=== PATIENT | male | born 1990 | race African-American/Black ===

== ENCOUNTER 2016-04-02 21:34 | Emergency (ER) | payer OTHER ==
[~2016-04-02] VITALS: Ht 177.8 cm; Wt 124.7 kg
[2016-04-02 21:45] VITALS: BP 147/86
--- NOTE | 2016-04-02 21:55 | PHYS DOC ---
Past Medical History Past Medical History: Hypertension, Other Additional Past Medical Histor: MOOD DISORDER, BACK PAIN, HERPES Past Surgical History: Other Additional Past Surgical Histo: GENITAL AND EYE Alcohol Use: None Drug Use: None Adult General Chief Complaint Chief Complaint: FOREIGN BODY HPI HPI Patient is a 25 year old male who presents with penile foreign body. Patient reports ~5-6 this evening he took the plastic cap from a disposable razor and pushed in into his urethra. When asked why he says because he was bored. He has not been able to urinate since he placed it there. He is having pain in his penis right now. He does have recent history of similar problem; he says about a week ago he put a toothbrush into his urethra that had to be surgically removed (this was in [place]). No episodes before that. Review of Systems Review of Systems Constitutional: Denies fever or chills Respiratory: Denies cough or shortness of breath Cardiovascular: Denies chest pain GI: Denies abdominal pain, nausea, vomiting, or diarrhea : Foreign body in urethra, unable to urinate Musculoskeletal: Denies back pain or joint pain Current Medications Current Medications Current Medications Medications (Trade) Dose Ordered Sig/Kristin Start Time Stop Time Status Last Admin Dose Admin Ibuprofen (Motrin) 800 mg 1X ONCE 04/02/16 22:15 04/02/16 22:16 DC Allergies Allergies Allergies Coded Allergies Type Severity Reaction Last Updated Verified Penicillins Allergy Unknown 04/02/16 Yes Physical Exam Physical Exam Constitutional: Well developed, well nourished, no acute distress, non-toxic appearance HENT: Normocephalic, atraumatic, bilateral external ears normal Cardiovascular: Heart rate normal, regular rhythm, no murmur Lungs & Thorax: Bilateral breath sounds clear to auscultation Abdomen: Bowel sounds normal, soft, non-distended, no TTP : Foreign body palpable in penile urethra, TTP; no blood or discharge at urethral meatus Skin: Warm, dry, no erythema, no rash Current Patient Data Vital Signs Vital Signs Date Time Temp Pulse Resp B/P Pulse Ox O2 Delivery O2 Flow Rate FiO2 04/02/16 21:45 98.3 79 20 147/86 98 Room Air 98.3 EKG EKG [] Radiology/Procedures Radiology/Procedures [] Course & Med Decision Making Course & Med Decision Making Pertinent Labs and Imaging studies reviewed. (See chart for details) Patient is 25-year-old male who presents with urethral foreign body. He has been unable to urinate since placing it. I spoke with Dr. Maria, electronics test engineer urologist. He is out of town tonight; per his recommendation we will bladder scan the patient, and if greater than 200 mL then he will need to be transferred so that he can have it removed tonight. If not then he will be able to stay until the morning when Dr. Maria will be able to remove it. Bladder scan showed 477 mL in the bladder. I spoke with Dr. Richards at [facility], who has graciously accepted patient in transfer. We will transfer him via [facility] transport van. Patient up-to-date on plan. Dragon Disclaimer Dragon Disclaimer This electronic medical record was generated, in whole or in part, using a voice recognition dictation system. Departure Departure Impression: Primary Impression: Urethral foreign body Disposition: 05 TRANSFER OTHER Condition: STABLE EBER LAMBERT MD Apr 02, 2016 21:55
[2016-04-02] MEDS ORDERED: IBUPROFEN 800 MG TABLET. PO ONE (22:15)
== END 2016-04-02 23:17 | disposition short-term general hospital (02) ==
LOC: EEVIPCON 21:34 → ER 21:34
DX: T19.0XXA Foreign body in urethra, initial encounter (principal); I10 Essential (primary) hypertension; F39 Unspecified mood [affective] disorder; Z88.0 Allergy status to penicillin; X58.XXXA Exposure to other specified factors, initial encounter; Y93.89 Activity, other specified; Y92.89 Other specified places as the place of occurrence of the external cause; Y99.8 Other external cause status
CPT/HCPCS: 99284

== ENCOUNTER 2016-04-30 02:55 | Emergency (ER) | payer OTHER ==
[~2016-04-30] VITALS: Ht 182.9 cm; Wt 124.7 kg
[2016-04-30 03:17] VITALS: BP 167/82
[2016-04-30] MEDS ORDERED: CIPR500T94 PO (03:51)
--- NOTE | 2016-04-30 03:52 | PHYS DOC ---
Past Medical History Past Medical History: Hypertension, Other Additional Past Medical Histor: MOOD DISORDER, BACK PAIN, HERPES Past Surgical History: Other Additional Past Surgical Histo: GENITAL AND EYE Alcohol Use: None Drug Use: None Adult General Chief Complaint Chief Complaint: FOREIGN BODY HPI HPI Patient is a 25 year old male who presents with complaint of self inserted foreign body in the urethra. Patient states that he placed a pen cap inside of his penis through his urethra. The patient when asked why he did this stated "I don't know, I just got bored." The patient has admitted to doing the same in the past and was recently seen in the emergency department in March of this year and transferred to [facility] for removal. Patient states he did this yesterday evening and stated that he started getting worsening pain early this morning. Patient brought to the emergency department from [facility] where he currently resides. Patient rates his pain as 8 out of 10. Patient states he is having difficulty urinating due to the obstruction. Review of Systems Review of Systems Constitutional: Denies fever or chills [] Eyes: Denies change in visual acuity, redness, or eye pain [] HENT: Denies nasal congestion or sore throat [] Respiratory: Denies cough or shortness of breath [] Cardiovascular: Denies chest pain or edema [] GI: Denies abdominal pain, nausea, vomiting, bloody stools or diarrhea [] : Dysuria, foreign body in urethra [] Musculoskeletal: Denies back pain or joint pain [] Integument: Denies rash or skin lesions [] Neurologic: Denies headache, focal weakness or sensory changes [] Allergies Allergies Allergies Coded Allergies Type Severity Reaction Last Updated Verified Penicillins Allergy Unknown 04/02/16 Yes Physical Exam Physical Exam Constitutional: Alert, afebrile, no acute distress. [] HENT: Normocephalic, atraumatic, bilateral external ears normal, oropharynx moist, no oral exudates, nose normal. [] Cardiovascular:Heart rate regular rhythm, no murmur [] Lungs & Thorax: Bilateral breath sounds clear to auscultation [] Abdomen: Bowel sounds normal, soft, no tenderness, no masses, no pulsatile masses. : The patient is circumcised, urethral meatus was inspected with visible foreign body at opening of meatus, no visible redness or swelling present [] Skin: Warm, dry, no erythema, no rash. [] Back: No tenderness, no CVA tenderness. [] Extremities: No tenderness, no cyanosis, no clubbing, ROM intact, no edema. [] Neurologic: Alert and oriented X 3, normal motor function, normal sensory function, no focal deficits noted. [] Current Patient Data Vital Signs Vital Signs Date Time Temp Pulse Resp B/P Pulse Ox O2 Delivery O2 Flow Rate FiO2 04/30/16 03:17 98.6 89 20 167/82 98 Room Air 98.6 EKG EKG Not performed [] Radiology/Procedures Radiology/Procedures Indication: Foreign body in urethra Procedure: The area of the foreign body was prepped and draped with Betadine and sterile towels. The foreign body was visualized at the urethral meatus. Two bits of waded paper were removed from the urethral meatus. The tip of the pen cap was identified and grasped using curved forceps. The pen cap was removed using gentle traction with minimal resistance. There was no visible signs of bleeding after removal. The patient tolerated the procedure without difficulty. Complications: None Course & Med Decision Making Course & Med Decision Making Pertinent Labs and Imaging studies reviewed. (See chart for details) Patient's foreign body was removed as outlined in the procedure note. Counseled patient on discontinuing insertion of foreign bodies into the urethra as this will lead to permanent damage leading to incontinence and possible erectile dysfunction. Patient voiced understanding. Patient will be treated with prophylactic Cipro to prevent urinary tract infection. Advised follow-up in 3-5 days with primary doctor and return to emergency department for any worsening symptoms. Patient voiced understanding and in agreement with treatment plan. Dragon Disclaimer Dragon Disclaimer This electronic medical record was generated, in whole or in part, using a voice recognition dictation system. Departure Departure Impression: Primary Impression: Urethral foreign body Disposition: HOME, SELF-CARE Condition: IMPROVED Referrals: NO PCP (PCP) Patient Instructions: Foreign Body Additional Instructions: Follow-up with your primary doctor in 3-5 days. Return to emergency department for any worsening symptoms. Scripts Ciprofloxacin Hcl (Cipro)500 Mg Tablet1 Tab PO BID #[id number] TAB Prov:JORDYN NAVARRETE MD 04/30/16 Problem Qualifiers Primary Impression: Urethral foreign body Encounter type: initial encounter Qualified Code: T19.0XXA - Foreign body in urethra, initial encounter JORDYN NAVARRETE MD Apr 30, 2016 03:52
== END 2016-04-30 04:20 | disposition home or self-care (01) ==
LOC: ER 02:55 → EEVIPCON 02:55 → ER 04:20
DX: T19.0XXA Foreign body in urethra, initial encounter (principal); I10 Essential (primary) hypertension; Z88.0 Allergy status to penicillin; W45.8XXA Other foreign body or object entering through skin, initial encounter; Y93.89 Activity, other specified; Y92.89 Other specified places as the place of occurrence of the external cause; Y99.8 Other external cause status
CPT/HCPCS: 99284-25